=== PATIENT | male | born 1975 | race Caucasian/White ===

== ENCOUNTER 2019-05-10 05:39 | Emergency (ER) | payer BC ==
[2019-05-10 06:45] VITALS: TEMP 98.1; BMI 33.4
[2019-05-10] MEDS ORDERED: SODIUM CHLORIDE 0.9% 500 ML INFUS.BAG IV ONE (07:27)
[2019-05-10] MEDS ORDERED: ONDANSETRON 4 MG/2 ML VIAL IVPUSH ONE (07:27)
[2019-05-10] MEDS ORDERED: ACETAMINOPHEN 1000 MG/100 ML VIAL (NON FORMULARY) IVPB ONE (07:27)
--- NOTE | 2019-05-10 07:29 | PDOC ---
History of Present Illness <Bita Stoner - Last Filed: 05/10/19 10:15> - History of Present Illness Initial Comments: The pt is a 43M w/ a history of HTN and HLD who presents for evaluation of N/V/ D and chest discomfort. The pt reports his N/V/D started at approximately 0300 today. He reports NBNB V x3 and NB diarrhea x8-9. He denies abdominal pain, new/ suspicious foods, or sick contacts. He also reports chest pressure that is left sided, non-radiating, constant, and is not exacerbated or alleviated by anything he can identify. He is unsure if the discomfort started before or after the N/V. Denies fevers, SOB, HENSON, dysuria, hematuria, vision changes, or changes in sensation/strength 05/10/19 07:28 <Carlos Bella - Last Filed: 05/10/19 12:19> - General Chief Complaint: Vomiting/Diarrhea Stated Complaint: VOMITING,DIARRHEA Past History <Bita Stoner - Last Filed: 05/10/19 10:15> - Past Medical History COPD: No GI Disorders: Yes (acid reflux) HTN: Yes Hypercholesterolemia: Yes - Surgical History Abdominal Surgery: No - Psycho Social/Smoking Cessation Hx Smoking Status: No Smoking History: Never smoked Number of Cigarettes Smoked Daily: 0 Hx Alcohol Use: No Drug/Substance Use Hx: No Substance Use Type: None <LethajimJohnnie albertoan - Last Filed: 05/10/19 12:19> - Past Medical History Allergies/Adverse Reactions: Allergies Allergy/AdvReac Type Severity Reaction Status Date / Time No Known Allergies Allergy Verified 06/11/15 08:41 Home Medications: Ambulatory Orders Ondansetron [Zofran -] 4 mg PO BID #20 tablet 06/11/15 Review of Systems - Review of Systems Able to Perform ROS?: Yes Comments:: GENERAL/CONSTITUTIONAL: No fever or chills. No weakness HEAD, EYES, EARS, NOSE AND THROAT: No change in vision. No change in hearing. No sore throat CARDIOVASCULAR: No shortness of breath RESPIRATORY: Denies cough, hemoptysis GASTROINTESTINAL: +N/V/D GENITOURINARY: No dysuria, frequency, or change in urination MUSCULOSKELETAL: No joint or muscle swelling or pain. No neck or back pain SKIN: No rash NEUROLOGIC: No headache, vertigo, loss of consciousness, or change in strength/ sensation ENDOCRINE: No increased thirst. No abnormal weight change HEMATOLOGIC/LYMPHATIC: No anemia, easy bleeding, or history of blood clots ALLERGIC/IMMUNOLOGIC: No hives or skin allergy 05/10/19 07:42 Is the patient limited Spanish proficient: No <Carlos Bella - Last Filed: 05/10/19 12:19> *Physical Exam - Vital Signs Last Vital Signs Temp Pulse Resp BP Pulse Ox 98.1 F 73 23 H 128/72 97 05/10/19 05:50 05/10/19 09:19 05/10/19 09:19 05/10/19 09:19 05/10/19 09:19 <Bita Stoner - Last Filed: 05/10/19 10:15> - Vital Signs Last Vital Signs Temp Pulse Resp BP Pulse Ox 98.1 F 86 18 120/82 97 05/10/19 05:50 05/10/19 05:50 05/10/19 05:50 05/10/19 05:50 05/10/19 05:50 - Physical Exam GENERAL: Awake, alert, and oriented to person/place/time, in no acute distress HEAD: No signs of trauma, normocephalic, atraumatic EYES: PERRLA, EOMI, sclera anicteric, conjunctiva clear ENT: Hearing grossly normal, nares patent, oropharynx clear without exudates. Moist mucosa LUNGS: No distress, speaks in full sentences, clear to auscultation bilaterally HEART: Regular rate and rhythm, normal S1 and S2, no murmurs appreciated, peripheral pulses normal and equal bilaterally ABDOMEN: Soft, nontender, normoactive bowel sounds. No guarding, no rebound EXTREMITIES: Normal inspection, Normal range of motion, no edema. No clubbing or cyanosis NEUROLOGICAL: Cranial nerves II through XII grossly intact. Normal speech, normal gait, no focal sensorimotor deficits SKIN: Warm, Dry 05/10/19 07:43 <Carlos Bella - Last Filed: 05/10/19 12:19> ED Treatment Course - LABORATORY CBC & Chemistry Diagram: 05/10/19 08:04 05/10/19 08:04 - ADDITIONAL ORDERS Additional order review: Laboratory Results 1205/10/19 05/10/19 09:00 08:04 08:04 Sodium 137 Potassium 4.3 Chloride 107 Carbon Dioxide 24 Anion Gap 6 L BUN 19.9 H Creatinine 1.1 Est GFR (CKD-EPI)AfAm 94.79 Est GFR (CKD-EPI)NonAf 81.78 Random Glucose 112 H Calcium 9.3 Total Bilirubin 0.5 AST 29 ALT 43 Alkaline Phosphatase 71 Troponin I < 0.02 Total Protein 8.5 H Albumin 4.3 Urine Color Yellow Urine Appearance Clear Urine pH 5.0 Ur Specific [place] 1.024 Urine Protein Negative Urine Glucose (UA) Negative Urine Ketones Negative Urine Blood Negative Urine Nitrite Negative Urine Bilirubin Negative Urine Urobilinogen 0.2 Ur Leukocyte Esterase Negative 05/10/19 08:04 RBC 5.69 H MCV 83.3 MCHC 32.8 RDW 13.6 MPV 7.3 L Neutrophils % 92.3 H Lymphocytes % 2.6 L D Monocytes % 4.2 Eosinophils % 0.7 D Basophils % 0.2 - Medications Given in the ED: ED Medications Discontinued Medications Generic Name Dose Route Start Last Admin Trade Name Prema PRN Reason Stop Dose Admin Acetaminophen 1,000 mg 05/10/19 07:27 05/10/19 08:17 Ofirmev Injection - IVPB 05/10/19 07:28 Not Given ONCE ONE Aspirin 324 mg 05/10/19 07:37 05/10/19 08:17 Asa - PO 05/10/19 07:38 324 mg ONCE ONE Administration Ketorolac Tromethamine 15 mg 05/10/19 08:11 05/10/19 08:17 Toradol Injection - IVPUSH 05/10/19 08:12 15 mg ONCE ONE Administration Ondansetron HCl 4 mg 05/10/19 07:27 05/10/19 08:17 Zofran Injection IVPUSH 05/10/19 07:28 4 mg ONCE ONE Administration Sodium Chloride 1,000 ml 05/10/19 07:27 05/10/19 08:08 Normal Saline - IV 05/10/19 07:28 1,000 ml ONCE ONE Administration <Bita Stoner - Last Filed: 05/10/19 10:15> - LABORATORY CBC & Chemistry Diagram: 05/10/19 08:04 05/10/19 08:04 - RADIOLOGY Radiology Studies Ordered: Category Date Time Status CHEST X-RAY PORTABLE* [RAD] Stat Radiology 05/10/19 07:25 Ordered <Carlos Bella - Last Filed: 05/10/19 12:19> Medical Decision Making - Medical Decision Making The pt is a 43M w/ a history of HTN and HLD who presents for evaluation of N/V/ D and chest discomfort for approximately 4 hours ED Course CMP, CBC, Trop I ECG CXR IVF and zofran for symptomatic relief ASA 324mg PO once 05/10/19 07:43 Pt clarified chest pain is only w/ movement Toradol for symptomatic relief UA 05/10/19 08:11 ECG w/ NSR; HR 82; QTc 448; no axis deviation; no TWI; no CANDY 05/10/19 09:03 Labs and imaging unremarkable Pt feels improved at this time Symptoms likely 2/2 viral syndrome Plan for D/C w/ PCP f/u Discharge instructions and return precautions given Patient in agreement and verbalized understanding Dispo: Home 05/10/19 12:18 <Carlos Bella - Last Filed: 05/10/19 12:19> Discharge - Discharge Information Problems reviewed: Yes - Admission No <Bita Stoner - Last Filed: 05/10/19 10:15> - Discharge Information Problems reviewed: Yes - Admission No <Carlos Bella - Last Filed: 05/10/19 12:19> - Discharge Information Clinical Impression/Diagnosis: Chest wall pain Nausea and vomiting Qualifiers: Vomiting type: unspecified Vomiting Intractability: unspecified Qualified Code( s): R11.2 - Nausea with vomiting, unspecified Condition: Stable Disposition: HOME - Follow up/Referral Referrals: Yohan Haines MD [Primary Care Provider] - - Patient Discharge Instructions Patient Printed Discharge Instructions: DI for Vomiting -- Adult Additional Instructions: You were seen in the ER for nausea, vomiting, and chest wall pain. We did laboratory work, a chest x-ray, and an electrocardiogram and there were no concerning findings. We gave you medications which did help with your symptoms, and made sure you were able to drink fluids. You are safe to go home and follow up with your primary doctor tomorrow. Please take Tylenol as needed for discomfort, following the medication label. Call Dr. Haines tomorrow morning to set a follow up appointment. Focus on drinking plenty of fluids, and it is okay if you're unable to eat many solid foods for the next 24 hours. Most important is fluids. Return to the ER for any new or worsening symptoms, especially vomiting blood, bloody or black diarrhea, severe chest pain or abdominal pain, fainting, inability to keep down fluids, or other emergency concerns. - Post Discharge Activity Work/Back to School Note: Back to Work
[2019-05-10] MEDS ORDERED: ASPIRIN 81 MG CHEWABLE TABLETS PO ONE (07:37)
[2019-05-10] MEDS ORDERED: KETOROLAC TROMETHAMINE 15 MG/ML VIAL IVPUSH ONE (08:11)
[2019-05-10] MEDS ORDERED: ASPIRIN 325 MG ENTERIC COATED TABLET (FP) ONE (08:12)
[2019-05-10 08:13] LABS: BASO % 0.2 % (0-2.0); EOS % 0.7 % (0-4.5); HEMATOCRIT 47.4 % (35.4-49); HEMOGLOBIN 15.5 GM/dL (11.7-16.9); LYMPH % 2.6 % (8-40); MCH 27.3 pg (25.7-33.7); MCHC 32.8 g/dl (32.0-35.9); MEAN CELL VOLUME 83.3 fl (80-96); MEAN PLT VOLUME 7.3 fl (7.5-11.1); MONO % 4.2 % (3.8-10.2); NEUT % 92.3 % (42.8-82.8); PLATELET COUNT 284 K/MM3 (134-434); RBC 5.69 M/mm3 (4.00-5.60); RDW 13.6 % (11.9-15.9); WHITE BLOOD COUNT 15.5 K/mm3 (4.0-10.0)
[2019-05-10] MEDS ORDERED: ONDANSETRON 4 MG/2 ML VIAL ONE (08:13)
[2019-05-10] MEDS ORDERED: KETOROLAC TROMETHAMINE 15 MG/ML VIAL ONE (08:13)
--- NOTE | 2019-05-10 08:28 | PDOC ---
Attending Attestation - Resident Resident Name: Carlos Bella - HPI HPI: 05/10/19 08:14 43 y/o male here in ED c/o nausea and vomiting started yesterday started around 1 am today. Pt's last meal around 8pm hd salad and some food purchased at [employer]. Other people ate the same food but he is the only one who had salad an is now having nausea,vomiting and diarrhea. Pt reports 3 episodes of nausea with vomiting and 6-8 episodes of diarrhea ,last episodes of both occurring around 5 am. Pt still feels a little nausea.Pt also reports some chest discomfort with movement,left testicular discomfort intermittently but not presently, slight pain to head where he hit his head 3 months ago. Pt is non toxic appearing and not in acute distress. - Physicial Exam PE: 05/10/19 08:28 General: Pt is non toxic appearing, well nourished and not in acute distress HEENT:NCAT,MORRO, EOMI Neck: supple Lungs: + bs vanessa cta, Heart: S1S2 regular Abd: + bs abd soft no guarding rigidity or tenderness at present EXT: NO edema : Pt is uncircumcised, foreskin easily retracts, no penile discharge, no palpable hernia and no pain at present Neuro:Pt is alert and oriented x3, dennis no focal deficits 05/10/19 11:08 - Medical Decision Making 05/10/19 08:32 43 y/o male with sudden onset on nausea and vomiting started at 1 am today no further episodes since 5AM. MDM:Pt symptoms suggestive of acute gastroenteritis vs food poisoning, unlikely ACS. Will also check UA due to intermittent c/o left testicular pain, troponin due to atypical chest pain, but symptoms more suggestive of costochondritis pain with movement, pt is pain free at present. Will check cbc,cmp, ua, cxr, ekg , toradol, ofran, IV fluid and revaluate 05/10/19 11:04 Pt's labs noted and reviewed, pt with elevated WBC and slight left shift noted on cbc, but physocal symptoms have resolved. Pt with no further episodes of vomiting, or diarrhea, feels better and wants to go home, elevated wbc may be related to acute phase reaction. Pt is stable for dc home with out pt f/u with PCP , who may or consider referral to urology due to his intermittent testicular pain. Pt agreed with this dc plan and left ED in stable condition. Wet read of cxr no acute infiltrate. 05/10/19 11:09 05/10/19 11:10
[2019-05-10 08:40] LABS: ALBUMIN 4.3 g/dl (3.4-5.0); BILIRUBIN,TOTAL 0.5 mg/dL (0.2-1); BLOOD UREA NITROGEN 19.9 mg/dL (7-18); CALCIUM 9.3 mg/dL (8.5-10.1); CREATININE 1.1 mg/dL (0.55-1.3); POTASSIUM 4.3 mmol/L (3.5-5.1); TOT PROT 8.5 g/dl (6.4-8.2)
[2019-05-10 09:14] LABS: URINE APPEARANCE CLEAR; URINE BILIRUBIN NEGATIVE (NEGATIVE); URINE COLOR YELLOW; URINE GLUCOSE (UA) NEGATIVE (NEGATIVE); URINE KETONE NEGATIVE (NEGATIVE); URINE LEUK ESTERASE NEGATIVE (NEGATIVE); URINE NITRITE NEGATIVE (NEGATIVE); URINE PROTEIN NEGATIVE (NEGATIVE); URINE UROBILINOGEN 0.2 mg/dL (0.2-1.0)
[2019-05-10 09:24] VITALS: BP 128/72; PULSE 73
[2019-05-10 10:44] LABS: PLATELET ESTIMATE ADEQUATE
[2019-05-10] MEDS ORDERED: ACETAMINOPHEN 325 MG TABLET (FP) PO ONE (11:22)
[2019-05-10] MEDS ORDERED: ACETAMINOPHEN 325 MG TABLET (FP) ONE (11:24)
--- NOTE | 2019-05-10 15:21 | EKG ---
Test Reason : Blood Pressure : / mmHG Vent. Rate : 082 BPM Atrial Rate : 082 BPM P-R Int : 140 ms QRS Dur : 092 ms QT Int : 384 ms P-R-T Axes : 051 078 024 degrees QTc Int : 448 ms NORMAL SINUS RHYTHM NORMAL ECG WHEN COMPARED WITH ECG OF 28-SEP-2010 21:57, NO SIGNIFICANT CHANGE WAS FOUND Confirmed by MD DENVER, VINAY ([id number]) on 05/10/2019 3:20:47 PM Referred By: Confirmed By:VINAY GOFF MD
== END 2019-05-10 11:29 | disposition home or self-care (01) ==
LOC: JER 05:39
PROC: 3E033NZ Introduction of Analgesics, Hypnotics, Sedatives into Peripheral Vein, Percutaneous Approach (ICD-10-PCS; principal; 2019-05-10)
PROC: 3E0333Z Introduction of Anti-inflammatory into Peripheral Vein, Percutaneous Approach (ICD-10-PCS; 2019-05-10)
PROC: 3E033GC Introduction of Other Therapeutic Substance into Peripheral Vein, Percutaneous Approach (ICD-10-PCS; 2019-05-10)
DX: R07.89 Other chest pain (principal); R11.2 Nausea with vomiting, unspecified; R19.7 Diarrhea, unspecified; I10 Essential (primary) hypertension; E78.5 Hyperlipidemia, unspecified
CPT/HCPCS: 36415; 71045-TC-FY; 80053; 81003; 84484; 85025; 93005; 93010; 99285-25

== ENCOUNTER 2021-08-03 07:27 | Emergency (ER) | payer BC ==
[2021-08-03 07:49] VITALS: BP 169/91; PULSE 59; TEMP 98.1; BMI 33.4
[2021-08-03] MEDS ORDERED: LIDOCAINE 5% TOPICAL PATCH TP ONE (08:36)
[2021-08-03] MEDS ORDERED: KETOROLAC TROMETHAMINE 15 MG/ML VIAL IM ONE (08:36)
[2021-08-03] MEDS ORDERED: KETOROLAC TROMETHAMINE 15 MG/ML VIAL ONE (08:44)
[2021-08-03] MEDS ORDERED: LIDOCAINE 5% TOPICAL PATCH ONE (08:44)
[2021-08-03] MEDS ORDERED: LIDOCAINE PATCH REMOVAL MC SCH (22:00)
== END 2021-08-03 08:56 | disposition home or self-care (01) ==
LOC: JERFT 07:27
PROC: 3E0233Z Introduction of Anti-inflammatory into Muscle, Percutaneous Approach (ICD-10-PCS; principal; 2021-08-03)
DX: M54.50 Low back pain, unspecified (principal)
CPT/HCPCS: 99284-25

== ENCOUNTER 2022-10-25 04:14 | Day surgery (SDC) | payer BC ==
[2022-10-24 08:04] VITALS: BMI 33.5
[2022-10-25 09:23] VITALS: TEMP 97.7
[2022-10-25 09:39] VITALS: RESP 18
[2022-10-25 09:56] VITALS: BP 133/86; PULSE 60
== END 2022-10-25 10:13 | disposition home or self-care (01) ==
LOC: JASU-ENDO 04:14
PROVIDERS: ATTEND Internal Medicine Gastroenterology
PROC: 0DB98ZX Excision of Duodenum, Via Natural or Artificial Opening Endoscopic, Diagnostic (ICD-10-PCS; 2022-10-25)
PROC: 0DB78ZX Excision of Stomach, Pylorus, Via Natural or Artificial Opening Endoscopic, Diagnostic (ICD-10-PCS; 2022-10-25)
PROC: 0DB38ZX Excision of Lower Esophagus, Via Natural or Artificial Opening Endoscopic, Diagnostic (ICD-10-PCS; 2022-10-25)
PROC: 0DJD8ZZ Inspection of Lower Intestinal Tract, Via Natural or Artificial Opening Endoscopic (ICD-10-PCS; principal; 2022-10-25 08:30)
DX: Z12.11 Encounter for screening for malignant neoplasm of colon (principal); K21.00 Gastro-esophageal reflux disease with esophagitis, without bleeding; K44.9 Diaphragmatic hernia without obstruction or gangrene; K29.50 Unspecified chronic gastritis without bleeding; K27.9 Peptic ulcer, site unspecified, unspecified as acute or chronic, without hemorrhage or perforation; I10 Essential (primary) hypertension
CPT/HCPCS: 88305-TC; 88342-TC

== ENCOUNTER 2023-09-19 09:22 | Emergency (ER) | payer BC ==
[2023-09-19 09:26] VITALS: TEMP 98.6; BMI 34.0
[2023-09-19 11:04] LABS: EPI CELLS 1 /uL (0-25.1); HYALINE CASTS 0 /uL (0-3.1); PH,URINE 5.5 (5.0-8.0); URINE APPEARANCE CLEAR; URINE BACTERIA 0 /uL (0-1359); URINE BILIRUBIN NEGATIVE (NEGATIVE); URINE COLOR YELLOW; URINE GLUCOSE (UA) NEGATIVE (NEGATIVE); URINE KETONE NEGATIVE (NEGATIVE); URINE LEUK ESTERASE NEGATIVE (NEGATIVE); URINE NITRITE NEGATIVE (NEGATIVE); URINE PROTEIN NEGATIVE (NEGATIVE); URINE RBC 71 /uL (0-23.9); URINE UROBILINOGEN 0.2 mg/dL (0.2-1.0); URINE WBC 6 /uL (0-25.8)
[2023-09-19] MEDS ORDERED: TAMSULOSIN HCL 0.4 MG CAP ONE (11:21)
[2023-09-19] MEDS ORDERED: KETOROLAC TROMETHAMINE 30 MG/1 ML VIAL ONE (11:21)
[2023-09-19] MEDS: TAMSULOSIN HCL 0.4 MG CAP PO ONE (11:25)
[2023-09-19] MEDS: KETOROLAC TROMETHAMINE 30 MG/1 ML VIAL IM ONE (11:25)
[2023-09-19 12:29] VITALS: BP 138/77; PULSE 60; RESP 19
== END 2023-09-19 13:07 | disposition home or self-care (01) ==
LOC: JER 09:22
PROC: 3E0233Z Introduction of Anti-inflammatory into Muscle, Percutaneous Approach (ICD-10-PCS; principal; 2023-09-19)
DX: M54.9 Dorsalgia, unspecified (principal); N20.0 Calculus of kidney
CPT/HCPCS: 74176-TC; 81003; 99284-25

== ENCOUNTER 2024-02-20 04:34 | Day surgery (SDC) | payer BC ==
[2024-02-12 10:15] VITALS: BMI 33.7
[2024-02-20 09:28] VITALS: TEMP 98.2
[2024-02-20 09:57] VITALS: BP 119/66; PULSE 64; RESP 11
== END 2024-02-20 10:07 | disposition home or self-care (01) ==
LOC: JASU-ENDO 04:34
PROVIDERS: ATTEND Internal Medicine Gastroenterology
PROC: 0DB68ZX Excision of Stomach, Via Natural or Artificial Opening Endoscopic, Diagnostic (ICD-10-PCS; 2024-02-20)
PROC: 0DB58ZX Excision of Esophagus, Via Natural or Artificial Opening Endoscopic, Diagnostic (ICD-10-PCS; 2024-02-20)
PROC: 0DB98ZX Excision of Duodenum, Via Natural or Artificial Opening Endoscopic, Diagnostic (ICD-10-PCS; principal; 2024-02-20 08:30)
DX: K22.70 Barrett's esophagus without dysplasia (principal); K20.90 Esophagitis, unspecified without bleeding; Z87.19 Personal history of other diseases of the digestive system
CPT/HCPCS: 88305-TC; 88342-TC